=== PATIENT | male | born 1945 | race Caucasian/White ===

== ENCOUNTER 2017-11-13 05:20 | Emergency (ER) | payer MEDICARE, OTHER ==
[~2017-11-13] VITALS: Ht 167.6 cm; Wt 83.6 kg
[~2017-11-13 05:20] MED LIST: ADULT LOW DOSE81 MG PO; COMBIVENT RESPI1 SPR IH; DILANTIN100 MG PO; MELOXICAM15 MG PO; SYNTHROID0.125 MG/T PO; TEMOVATE15 GM TP; TRIAMCINOLONE A15 G1 TP; TRIXAICIN TP; VYTORIN 10 MG-41 TAB PO; ZOFRAN ODT4 MG PO
[2017-11-13 06:07] LABS: HEMATOCRIT 38.9 % (42.0-52.0); HEMOGLOBIN 13.1 g/dL (13.5-18.0); MEAN CELL VOLUME 88 fl (78-100); MEAN CORPUSCULAR HEMOGLOBIN 30 pg (27-31); MEAN CORPUSCULAR HGB CONC 34 g/dL (33-37); MEAN PLATELET VOLUME 9.1 fl (7.4-10.4); PLATELET COUNT 205 K/mm3 (130-400); RED BLOOD COUNT 4.41 M/mm3 (4.20-5.60); RED CELL DISTRIBUTION WIDTH 12.6 % (11.5-14.5); WHITE BLOOD COUNT 5.4 K/mm3 (4.8-10.8)
[2017-11-13 06:23] LABS: ALBUMIN 3.4 g/dL (3.5-5.0); CALCIUM 8.1 mg/dL (8.4-10.2); POTASSIUM 4.1 mmol/L (3.6-5.0); TOTAL BILIRUBIN 0.2 mg/dL (0.2-1.3); TOTAL PROTEIN 6.4 g/dL (6.3-8.2)
[2017-11-13 06:30] LABS: LYMPHOCYTE 30 % (20-51); MONOCYTE 10 % (3-10); NEUTROPHILS 56 % (42-75)
[2017-11-13 06:31] LABS: PHENYTOIN (DILANTIN) 19.3 ug/mL (10.0-20.0)
[2017-11-13] MEDS ORDERED: GOOD NEIGHBOR M25 M1 PO (07:40)
[2017-11-13 07:55] VITALS: BP 138/85
[2017-11-13 08:05] LABS: URINE WBC 0 /hpf (0-3)
[2017-11-13 08:14] LABS: URINE APPEARANCE CLEAR; URINE BILIRUBIN NEGATIVE (NEGATIVE); URINE BLOOD NEGATIVE (NEGATIVE); URINE COLOR YELLOW; URINE GLUCOSE NEGATIVE (NEGATIVE); URINE KETONE NEGATIVE (NEGATIVE); URINE LEUKOCYTE ESTERASE NEGATIVE (NEGATIVE); URINE NITRATE NEGATIVE (NEGATIVE); URINE PROTEIN(semi-quant) NEGATIVE (NEGATIVE); URINE UROBILINOGEN NORMAL (NORMAL)
== END 2017-11-13 07:48 | disposition home or self-care (01) ==
LOC: ED 05:20
PROVIDERS: Family Medicine
DX: R42 Dizziness and giddiness (principal); E03.9 Hypothyroidism, unspecified; Z86.39 Personal history of other endocrine, nutritional and metabolic disease; Z86.69 Personal history of other diseases of the nervous system and sense organs; Z79.899 Other long term (current) drug therapy; Z79.82 Long term (current) use of aspirin; Z87.891 Personal history of nicotine dependence

== ENCOUNTER 2018-06-30 15:23 | Emergency (ER) | payer MEDICARE, OTHER ==
[~2018-06-30] VITALS: Wt 95.4 kg
[~2018-06-30 15:23] MED LIST changes: +GOOD NEIGHBOR M25 M1 PO; -SYNTHROID0.125 MG/T PO; +SYNTHROID25 MCG
[2018-06-30] MEDS ORDERED: PROAIR HFA0.09 MG/AC IH (15:35)
[2018-06-30] MEDS ORDERED: DOXYCYCLINE MO100 M3 PO (15:47)
[2018-06-30 16:20] LABS: CKMB ISOENZYME 1.2 ng/mL (0.6-3.5)
[2018-06-30 16:21] LABS: TROPONIN-I < 0.03 ng/mL (0.00-0.06)
[2018-06-30 17:12] LABS: HEMATOCRIT 43.4 % (42.0-52.0); HEMOGLOBIN 14.4 g/dL (13.5-18.0); MEAN CELL VOLUME 88 fl (78-100); MEAN CORPUSCULAR HEMOGLOBIN 29 pg (27-31); MEAN CORPUSCULAR HGB CONC 33 g/dL (33-37); MEAN PLATELET VOLUME 10.2 fl (7.4-10.4); PLATELET COUNT 322 K/mm3 (130-400); RED BLOOD COUNT 4.95 M/mm3 (4.20-5.60); WHITE BLOOD COUNT 9.7 K/mm3 (4.8-10.8)
[2018-06-30 17:33] LABS: LYMPHOCYTE 19 % (20-51); MONOCYTE 14 % (3-10); NEUTROPHILS 62 % (42-75)
[2018-06-30 18:07] LABS: ALBUMIN 4.1 g/dL (3.5-5.0); CALCIUM 9.3 mg/dL (8.4-10.2); POTASSIUM 4.3 mmol/L (3.6-5.0); TOTAL BILIRUBIN 0.3 mg/dL (0.2-1.3); TOTAL PROTEIN 7.4 g/dL (6.3-8.2)
[2018-06-30 20:20] VITALS: BP 147/93
== END 2018-06-30 20:20 | disposition home or self-care (01) ==
LOC: ED 15:23
PROVIDERS: Nurse Practitioner
DX: R07.9 Chest pain, unspecified (principal); E78.5 Hyperlipidemia, unspecified; E03.9 Hypothyroidism, unspecified; R56.9 Unspecified convulsions; Z79.82 Long term (current) use of aspirin; Z90.79 Acquired absence of other genital organ(s); Z87.891 Personal history of nicotine dependence

== ENCOUNTER → 2018-07-03 | Outpatient (CLI) | payer MEDICARE, OTHER ==
[2018-06-30 20:20] VITALS: BP 147/93
[~2018-07-03] MED LIST changes: +DOXYCYCLINE MO100 M3 PO; +PROAIR HFA0.09 MG/AC IH
== END ==
LOC: RAD 09:04
DX: J44.9 Chronic obstructive pulmonary disease, unspecified (principal)
CPT/HCPCS: Q9967

== ENCOUNTER → 2018-07-12 | Outpatient (CLI) | payer MEDICARE, OTHER ==
[2018-06-30 20:20] VITALS: BP 147/93
== END ==
LOC: RAD 10:40
DX: M79.89 Other specified soft tissue disorders (principal)

== ENCOUNTER → 2023-04-19 | Outpatient (CLI) | payer MEDICARE | LOC: LAB 12:03 | DX: U07.1 COVID-19 (principal) ==

== ENCOUNTER 2024-06-02 18:01 | Observation (INO) | payer MEDICARE ==
[~2024-06-02] VITALS: Ht 167.6 cm; Wt 91.7 kg
[2024-06-02] MEDS ORDERED: Albuterol 0.083% Nebule (2.5 MG/3 ML) IH ONE (19:30)
[2024-06-02] MEDS ORDERED: Acetaminophen 500 MG TAB PO ONE (19:45)
[2024-06-02 19:48] LABS: HEMATOCRIT 39.5 % (42.0-52.0); HEMOGLOBIN 12.7 g/dL (13.5-18.0); MEAN CELL VOLUME 90 fl (78-100); MEAN CORPUSCULAR HEMOGLOBIN 29 pg (27-31); MEAN CORPUSCULAR HGB CONC 32 g/dL (33-37); PLATELET COUNT 187 K/mm3 (130-400); RED BLOOD COUNT 4.39 M/mm3 (4.20-5.60); WHITE BLOOD COUNT 10.2 K/mm3 (4.8-10.8)
[2024-06-02 19:57] LABS: ALBUMIN 3.9 g/dL (3.4-4.8)
[2024-06-02 19:58] LABS: CALCIUM 9.1 mg/dL (8.3-10.5)
[2024-06-02 19:59] LABS: TOTAL PROTEIN 7.9 g/dL (6.2-8.1)
[2024-06-02 20:01] LABS: TOTAL BILIRUBIN 0.3 mg/dL (0.2-1.2)
[2024-06-02 20:16] LABS: NEUTROPHILS 77 % (42-75)
[2024-06-02 20:17] LABS: LYMPHOCYTE 5 % (20-51); MONOCYTE 17 % (3-10)
[2024-06-02 20:33] LABS: URINE APPEARANCE SLIGHTLY CLOUDY (CLEAR); URINE BILIRUBIN 1+ (NEGATIVE); URINE COLOR DARK YELLOW (YELLOW); URINE GLUCOSE NEGATIVE (NEGATIVE); URINE KETONE NEGATIVE (NEGATIVE); URINE PROTEIN(semi-quant) 2+ (NEGATIVE)
[2024-06-02 20:34] LABS: URINE BLOOD 2+ (NEGATIVE); URINE LEUKOCYTE ESTERASE NEGATIVE (NEGATIVE); URINE NITRATE NEGATIVE (NEGATIVE); URINE WBC 0-1 /hpf (0-3)
[2024-06-02 20:35] LABS: URINE MUCUS PRESENT (NOT PRESENT)
[2024-06-02] MEDS ORDERED: Polyethylene Glycol 3350 Powder 17 GM PACKET PO PRN (22:00)
[2024-06-02] MEDS ORDERED: Acetaminophen 500 MG TAB PO PRN (22:00)
[2024-06-02] MEDS ORDERED: Ibuprofen 200 MG TAB PO PRN (22:00)
[2024-06-02 22:11] VITALS: BP 120/72
[2024-06-02] MEDS ORDERED: SYNTHROID175 MCG PO (22:30)
[2024-06-02] MEDS ORDERED: ROSUVASTATIN CA40 MG PO (22:30)
[2024-06-03 04:11] VITALS: BP 151/87
[2024-06-03 07:00] VITALS: BP 117/69
[2024-06-03] MEDS ORDERED: LEVOTHYROXINE PO SCH (07:00)
[2024-06-03] MEDS ORDERED: Benzonatate 100 MG CAP PO PRN (07:30)
[2024-06-03 07:48] LABS: BASO # 0.03 K/mm3 (0.02-0.10); EOS # 0.06 K/mm3 (0.04-0.40); EOS % 0.8 % (0.0-4.0); HEMATOCRIT 36.6 % (42.0-52.0); HEMOGLOBIN 11.9 g/dL (13.5-18.0); LYMPH# 1.09 K/mm3 (1.50-4.00); MEAN CELL VOLUME 89 fl (78-100); MEAN CORPUSCULAR HEMOGLOBIN 29 pg (27-31); MEAN CORPUSCULAR HGB CONC 33 g/dL (33-37); MEAN PLATELET VOLUME 9.2 fl (7.4-10.4); NEU # 4.62 K/mm3 (1.40-6.50); PLATELET COUNT 185 K/mm3 (130-400); RED BLOOD COUNT 4.11 M/mm3 (4.20-5.60); RED CELL DISTRIBUTION WIDTH 13.2 % (11.5-14.5); WHITE BLOOD COUNT 7.1 K/mm3 (4.8-10.8)
[2024-06-03 07:55] LABS: ALBUMIN 3.6 g/dL (3.4-4.8)
[2024-06-03 07:57] LABS: CALCIUM 8.8 mg/dL (8.3-10.5)
[2024-06-03 07:58] LABS: TOTAL PROTEIN 7.3 g/dL (6.2-8.1)
[2024-06-03 08:00] LABS: TOTAL BILIRUBIN 0.3 mg/dL (0.2-1.2)
[2024-06-03] MEDS ORDERED: Famotidine 20 MG TAB PO SCH (09:00)
[2024-06-03] MEDS ORDERED: Oseltamivir 75 MG CAP PO SCH (09:00)
--- NOTE | 2024-06-03 10:22 | NUR ---
Pt status changed from obs to acute.
[2024-06-03] MEDS ORDERED: OSELTAMIVIR PHO75 MG PO (10:23)
[2024-06-03 11:00] VITALS: BP 137/81
[2024-06-03] MEDS ORDERED: Atorvastatin 80 MG TAB PO SCH (21:00)
== END 2024-06-03 13:00 | disposition other institution (70) ==
LOC: ED 18:01 → MED/SURG 21:31
PROVIDERS: Family Medicine; ADMIT Physician Assistant
DX: J10.00 Influenza due to other identified influenza virus with unspecified type of pneumonia (principal); G40.909 Epilepsy, unspecified, not intractable, without status epilepticus; E03.9 Hypothyroidism, unspecified; R32 Unspecified urinary incontinence; Z79.890 Hormone replacement therapy; Z79.899 Other long term (current) drug therapy
CPT/HCPCS: G0378

== ENCOUNTER 2024-06-03 11:51 | Inpatient (IN) | payer MEDICARE ==
[~2024-06-03] VITALS: Ht 167.6 cm; Wt 91.7 kg
[~2024-06-03 11:51] MED LIST changes: +OSELTAMIVIR PHO75 MG PO; +ROSUVASTATIN CA40 MG PO; +SYNTHROID175 MCG PO
[2024-06-03] MEDS ORDERED: Docusate Sodium 100 MG CAP PO SCH (12:06)
[2024-06-03] MEDS ORDERED: Polyethylene Glycol 3350 Powder 17 GM PACKET PO PRN (12:15)
[2024-06-03] MEDS ORDERED: Acetaminophen 500 MG TAB PO PRN (12:15)
[2024-06-03] MEDS ORDERED: Ibuprofen 200 MG TAB PO PRN (12:15)
[2024-06-03] MEDS ORDERED: Benzonatate 100 MG CAP PO PRN (12:15)
--- NOTE | 2024-06-03 13:31 | NUR ---
PATIENT ASSESSMENT DONE. PATIENT STATES THAT COUGHING IS LESS THEN ON ADMISSION AND PAIN MID STERNAL WHEN COUGHING. 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
[2024-06-03 15:47] VITALS: BP 132/80
[2024-06-03 19:00] VITALS: BP 148/78
[2024-06-03] MEDS ORDERED: Famotidine 20 MG TAB PO SCH (21:00)
[2024-06-03] MEDS ORDERED: Oseltamivir 30 MG CAP PO SCH (21:00)
[2024-06-03] MEDS ORDERED: Atorvastatin 80 MG TAB PO SCH (21:00)
[2024-06-03 23:12] VITALS: BP 149/77
[2024-06-04 03:43] VITALS: BP 163/82
[2024-06-04] MEDS ORDERED: Levothyroxine 0.1 MG,Levothyroxine 0.075 MG PO SCH (07:00)
[2024-06-04 07:10] VITALS: BP 166/90
--- NOTE | 2024-06-04 08:10 | NUR ---
Pt Ox4. Continues to run low grade temp, responds well to APAP. Reports continued non-productive cough. Tesslon pearls given. On continuous pulse ox, sats 96% on 2L via NC. Decreased to 1L, will continue to monitor.
[2024-06-04 11:07] VITALS: BP 135/72
[2024-06-04] MEDS ORDERED: Docusate Sodium 100 MG CAP PO PRN (13:30)
[2024-06-04 15:01] VITALS: BP 117/70
[2024-06-04 19:00] VITALS: BP 114/69
--- NOTE | 2024-06-04 19:19 | NUR ---
Pt placed on RA at 1100, able to maintain O2 sats >92% RA. Per Lisa Castellanos APRN, will keep continuous pulse ox overnight.
[2024-06-04 23:45] VITALS: BP 147/78
[2024-06-05 02:59] VITALS: BP 131/82
--- NOTE | 2024-06-05 06:31 | NUR ---
THIS RN OVERNIGHT NOTICED PTS O2 SATS DROPPED TO 89% CONTINUOUS WHILE PT WAS ASLEEP, 2L O2 NC WERE STARTED AND PT O2 SATS CAME UP TO 95% WHILE ASLEEP. THIS AM, WHILE PT IS AWAKE O2 SATS WERE 99% ON 2L O2, O2 WAS DC'D FOR A RA TRIAL. PT CONTINUES TO [place] O2 SATS OVER 92% WHILE AWAKE.
[2024-06-05 07:08] LABS: ALBUMIN 3.5 g/dL (3.4-4.8)
[2024-06-05 07:09] LABS: CALCIUM 8.9 mg/dL (8.3-10.5)
[2024-06-05 07:10] LABS: TOTAL PROTEIN 7.4 g/dL (6.2-8.1)
[2024-06-05 07:12] LABS: TOTAL BILIRUBIN 0.3 mg/dL (0.2-1.2)
[2024-06-05 07:40] LABS: BASO # 0.01 K/mm3 (0.02-0.10); EOS # 0.14 K/mm3 (0.04-0.40); HEMATOCRIT 49.9 % (42.0-52.0); HEMOGLOBIN 16.3 g/dL (13.5-18.0); LYMPH# 1.09 K/mm3 (1.50-4.00); MEAN CELL VOLUME 88 fl (78-100); MEAN CORPUSCULAR HEMOGLOBIN 29 pg (27-31); MEAN CORPUSCULAR HGB CONC 33 g/dL (33-37); MEAN PLATELET VOLUME 9.7 fl (7.4-10.4); MONO # 0.44 K/mm3 (0.20-0.80); NEU # 1.82 K/mm3 (1.40-6.50); PLATELET COUNT 183 K/mm3 (130-400); RED BLOOD COUNT 5.66 M/mm3 (4.20-5.60); RED CELL DISTRIBUTION WIDTH 12.8 % (11.5-14.5); WHITE BLOOD COUNT 3.5 K/mm3 (4.8-10.8)
[2024-06-05 07:43] VITALS: BP 128/73
--- NOTE | 2024-06-05 08:53 | NUR ---
PT ALERT AND ORIENTED X4, PT RESTING IN CHAIR AT THIS TIME, REPORTS A SMALL HEADACHE BUT DENIES OTHER PAIN AT THIS TIME. PT EXPRESSESS CONCERN ABOUT COUGH THAT HAS BEEN PRESENT FOR "3 WEEKS", PT LUNGS ARE DIMINISHED AND WET SOUNDING. PT ON ROOM AIR WHILE AWAKE AT 95 PERCENT SPO2, PT NOW RESTING IN HIS CHAIR WITH CALL LIGHT IN REACH, PT DENIES FURTHER NEEDS A TTHIS TIME
[2024-06-05 11:20] VITALS: BP 132/78
[2024-06-05 15:35] VITALS: BP 121/80
--- NOTE | 2024-06-05 18:51 | NUR ---
PT COMPLAINING OF LUQ PAIN STATING "FEELS LIKE I BROKE MY RIB" THIS NURSE AUSCLTATED AND PALPATED AREA. HYPERACTIVE BOWEL SOUNDS PRESENT, NO CREPITUS/MASSESS/REBOUND TENDERNESS/BRUSING PRESENT. THIS NURSE REPORTS PAIN TO PROVIDER BURTON, NO NEW ORDERS AT THIS TIME. THE REST OF THE ABDOMEN IS FREE OF PAIN
[2024-06-05 19:00] VITALS: BP 142/79
[2024-06-05 23:15] VITALS: BP 142/94
[2024-06-06 02:27] VITALS: BP 154/82
[2024-06-06 07:00] VITALS: BP 149/82
[2024-06-06 08:29] LABS: ALBUMIN 3.6 g/dL (3.4-4.8)
[2024-06-06 08:31] LABS: CALCIUM 9.1 mg/dL (8.3-10.5)
[2024-06-06 08:32] LABS: TOTAL PROTEIN 7.7 g/dL (6.2-8.1)
[2024-06-06 08:34] LABS: TOTAL BILIRUBIN 0.3 mg/dL (0.2-1.2)
[2024-06-06 09:04] LABS: BASO # 0.01 K/mm3 (0.02-0.10); EOS # 0.17 K/mm3 (0.04-0.40); EOS % 3.2 % (0.0-4.0); HEMATOCRIT 39.6 % (42.0-52.0); LYMPH# 1.46 K/mm3 (1.50-4.00); MEAN CELL VOLUME 87 fl (78-100); MEAN CORPUSCULAR HEMOGLOBIN 29 pg (27-31); MEAN CORPUSCULAR HGB CONC 33 g/dL (33-37); MONO # 0.63 K/mm3 (0.20-0.80); NEU # 2.98 K/mm3 (1.40-6.50); PLATELET COUNT 238 K/mm3 (130-400); RED BLOOD COUNT 4.55 M/mm3 (4.20-5.60); RED CELL DISTRIBUTION WIDTH 12.5 % (11.5-14.5); WHITE BLOOD COUNT 5.3 K/mm3 (4.8-10.8)
[2024-06-06 09:06] LABS: HEMOGLOBIN 13.1 g/dL (13.5-18.0)
[2024-06-06] MEDS ORDERED: guaiFENesin 200 MG TAB PO PRN (09:45)
--- NOTE | 2024-06-06 10:56 | NUR ---
PATEINT UP IN CHAIR FOR AM MEAL AND CALLED FOR ASSIST TO BR TO VOID AND HAVE SOFT FORMED BROWN BM. TOLERATES ACTIVITY WELL. AMBULATES ON ROOM AIR. PATIENT ENCOURAGED TO COUGHT AND DEEP BREATH.
[2024-06-06 11:05] VITALS: BP 138/80
--- NOTE | 2024-06-06 12:04 | NUR ---
PATIENT SLEEPS QUIETLY IN THE CHAIR ROOM AIR....RESP REGULAR AND NON LABORED
--- NOTE | 2024-06-06 13:55 | NUR ---
PATIENT'S IV SITE LEFT AC INTACT. DUE FOR SITE CHANGE TODAY. VISITED WITH DR WEISS AND HE STATED MAY LEAVE CURRENT IV SITE INTACT PATIENT HAS PROBABLE DISCHARGE HOME IN NEXT 24HOURS. PATEINT TEACHING DONE ON IV SITE. PATEINT DENIES NEEDS OR C/O.
[2024-06-06 14:05] VITALS: BP 149/78
--- NOTE | 2024-06-06 18:59 | NUR ---
REPORT TO JOHANNE
[2024-06-06 19:00] VITALS: BP 143/83
--- NOTE | 2024-06-06 19:00 | NUR ---
Report received from Hoa CALDWELL.
--- NOTE | 2024-06-06 21:15 | NUR ---
Patient rests in bed and awakened for HS meds. Alert and oriented. HS meds all reviewed and given. Mucinex offered and given for couph. O2 applied 2 Lpnc during noc.
[2024-06-06 23:09] VITALS: BP 164/80
--- NOTE | 2024-06-07 01:57 | NUR ---
SAO2 92% ON 2LPNC. PATIENT RESTS WITH EYES CLOSED.
[2024-06-07 03:00] VITALS: BP 156/73
--- NOTE | 2024-06-07 04:43 | NUR ---
Patient states "ya" to sleeping well this noc. Had o2 off and sats reading 81% O2 reapplied at 3lpnc and sats 98%.
--- NOTE | 2024-06-07 07:00 | NUR ---
REPORT RECEIVED FROM PAULETTE DIAZ
[2024-06-07 08:00] VITALS: BP 143/87
--- NOTE | 2024-06-07 08:20 | NUR ---
PATIENT SITTING UP IN CHAIR. A&Ox4, PLEASENT AND COOPERATIVE WITH CARES. PATIENT DENIES PAIN AT THIS TIME. ASSESSMENT COMPLETE, MEDICATIONS GIVEN, PATIENT DENIES OTHER NEEDS OR COMPLAINTS AT THIS TIME. PLAN IS FOR PATIENT TO DISCHARGE HOME TODAY, PATIENT VERBALIZED UNDERSTANDING. CHAIR ALARMED, CALL LIGHT WITHIN REACH.
--- NOTE | 2024-06-07 10:01 | NUR ---
DISHCARGE INSTRUCTIONS REVIEWED WITH PATIENT AT THIS TIME. PNEUMONIA EDUCATION REVIEWED. ALL QUESTIONS ANSWERED. PATIENT VERBALIZED UNDERSTANDING. PATIENT DISCHARGED HOME AT THIS TIME.
== END 2024-06-07 10:01 | disposition home or self-care (01) | DRG 195 ==
LOC: MED/SURG 11:51
PROVIDERS: Family Medicine; ADMIT Family Medicine
DX: J10.00 Influenza due to other identified influenza virus with unspecified type of pneumonia (principal); G40.909 Epilepsy, unspecified, not intractable, without status epilepticus; E03.9 Hypothyroidism, unspecified; E78.5 Hyperlipidemia, unspecified
CPT/HCPCS: A9270; J1650